=== PATIENT | female | born 1955 | race Caucasian/White ===

== ENCOUNTER 2020-01-05 13:34 | Observation (INO) | payer OTHER, MEDICARE ==
[~2020-01-05] VITALS: Ht 152.4 cm; Wt 84.2 kg
--- OUTSIDE RECORDS SUMMARY | 2020-01-05 13:37 | XMS REPORT ---
[facility] Address Unknown Phone Unavailable Care Team Providers Care Birth Attendant Name Role Phone KATI NASH Unavailable Unavailable Problems This patient has no known problems. Allergies, Adverse Reactions, Alerts This patient has no known allergies or adverse reactions. Medications This patient has no known medications. Results Test Description Test Time Test Comments Text Results Atomic Results Result Comments CT, BRAIN, WITHOUT / WITH IV CONTRAST 2019-01-18 12:31:[address], BRAIN, WITHOUT / WITH IV CONTRAST HISTORY: Fall, right head pain COMPARISON: None. TECHNIQUE: CT of the head was performed before and after the administration of intravenous contrast. Coronal/sagittal reformations were created. One or more of the following dose reduction techniques were used: Automated exposure control, adjustment of the mA and/or kV according to patient size, and/or utilization of iterative reconstruction technique. 100 mL of Isovue-300 were administered. DISCUSSION: Scalp/Skull: There is a small right frontal scalp hematoma. No calvarial fracture is seen.Brain sulci: Mildly prominent.Ventricles: Compensatory dilatation.Extra-axial spaces: Focal prominence of the subarachnoid space along the left temporal pole, measuring up to 3.4 cm in transverse dimension, is likely due to an arachnoid cyst; there is mild local mass effect. No additional masses or fluid collections. Mild carotid siphon calcifications are present. Parenchyma: Mild periventricular white matter hypodensities are likely chronic microvascular ischemic changes.No enhancing abnormalities.Otherwise, no masses, hemorrhage, or large vascular territory acute infarct. Dural sinuses: No abnormal densities.Sellar/Suprasellar region: Empty sella is present.Skull base: Intact.Incidental findings: There are mild degenerative changes in the bilateral temporomandibular and atlantoaxial joints. IMPRESSION:1.Small right frontal scalp hematoma. No calvarial fracture.2.No acute intracranial abnormalities.3.Mild generalized cerebral volume loss. Mild supratentorial chronic microvascular ischemic change.4.Incidental 3.4 cm left middle cranial fossa arachnoid cyst. Signed: Idris Braneport Verified Date/Time: 01/18/2019 12:31:58 Reading Location: [facility] Reading Room [address] [place] [address] -CREATININE 2019-01-18 11:32:00 POC-CREATININE (EZRA) (test fkgg=6222) 1.0 mg/dL 0.6-1.[address] [facility] [address] [facility] [address] POC-EGFR (BEAKER) (test jkkk=6379) mL/min/1.73M2 Insufficient clinical data to calculate estimated GFR
--- OUTSIDE RECORDS SUMMARY | 2020-01-05 13:37 | XMS REPORT | Summary of Care ---
Author Author [facility] Organization [facility] Address Unknown Phone Unavailable Care Team Providers Care Head Start Teacher Name Role Phone Chiqui Holt MD PCP Katia Diane MA 49 Unavailable Reason for Visit * Reason Comments Skin Lesion left hand * Consult, Test & Treat (Routine) Referred By Contact Referred To Contact Status Reason Specialty Diagnoses / Procedures Chiqui Holt MD [address] [facility] [address] [place] [address] Dermatology [address] [facility] [address] [place] [address] Authorization Consult, Test, and Dermatology Diagnoses Not Needed Treat Skin lesion P rocedures [place] OFFICE OUTPATIENT NEW 30 MINUTES Encounter Details Care Team Description Date Type Department Mira Robles MD [address] [facility] [address] [place] [address] [phone] Skin Lesion (left hand ) 12/27/2019 Office Visit [facility] Dermatology [address] [place] [address] [address] [place] [address] Allergies Comments Active Allergy Reactions Severity Noted Date Ativan 10/05/2009 Levaquin 10/05/2009 Tetanus Toxoid 10/05/2009 documented as of this encounter (statuses as of 12/27/2019) Medications End Date Status Medication Sig Dispensed Refills Start Date Active buPROPion (WELLBUTRIN) Take 450 mg 0 150 MG XL tablet by mouth 1 every morning. Active VIIBRYD 40 MG TABS 0 8 Active LATUDA 120 MG TABS 0 8 Active Na Sulfate-K Sulfate-Mg Take as 354 mL 1 Sulf (SUPREP BOWEL PREP directed 8 KIT) 17.5-3.13-1.6 GM/180ML SOLNIndications: Screen for colon cancer Active omeprazole (PRILOSEC) 20 Take 1 Cap by 30 Cap 11 MG capsuleIndications: mouth daily. 9 Esophagitis Active Na Sulfate-K Sulfate-Mg Take as 354 mL 1 Sulf (SUPREP BOWEL PREP directed 9 KIT) 17.5-3.13-1.6 GM/177ML SOLNIndications: Screen for colon cancer Active folic acid (FOLVITE) 1 MG TAKE 1 TABLET 90 Tab 0 tabletIndications: Folate BY MOUTH 0 deficiency DAILY Active methylphenidate (RITALIN) Take 20 mg by 0 20 MG tablet mouth two times daily. Active Melatonin 1 MG TABS Take by 0 mouth. 12/27/2019 Discontinued (*Therapy completed) aripiprazole (ABILIFY) 15 Take 15 mg by 0 MG tablet mouth daily. 12/27/2019 Discontinued (*Therapy completed) estradiol (ESTRACE) 0.1 Place 2 g 0 MG/GM vaginal cream vaginally daily. 12/27/2019 Discontinued (*Therapy completed) ferrous sulfate 325 (65 Take 1 Tab by 180 Tab 3 Fe) MG tabletIndications: mouth daily. 8 Other iron deficiency anemia 12/27/2019 Discontinued (*Therapy completed) VESICARE 10 MG TAKE 1 TABLET 90 Tab 0 tabletIndications: Urge BY MOUTH 9 incontinence DAILY 12/27/2019 Discontinued (*Therapy completed) Cholecalciferol (VITAMIN Take 1 Each 90 Cap 3 D3) 50 MCG (2000 UT) by mouth 9 CAPSIndications: Vitamin daily. D deficiency 12/27/2019 Discontinued (*Therapy completed) omeprazole (PRILOSEC) 20 TAKE 1 30 Cap 0 MG capsuleIndications: CAPSULE BY 9 Esophagitis MOUTH DAILY 12/27/2019 Discontinued (*Therapy completed) fluticasone (FLONASE) 50 1 Jackson by 1 Bottle 2 MCG/ACT nasal Each Nostril 9 sprayIndications: route daily. Non-seasonal allergic rhinitis, unspecified trigger 12/27/2019 Discontinued (*Therapy completed) Levocetirizine Take 1 Each 30 Each 3 Dihydrochloride (XYZAL) 5 by mouth 9 MG TABSIndications: daily. Non-seasonal allergic rhinitis, unspecified trigger 12/27/2019 Discontinued (*Therapy completed) azithromycin (ZITHROMAX) Take as 6 Tab 0 250 MG tabletIndications: directed on 9 Non-seasonal allergic package rhinitis, unspecified labeling. trigger Two pills by mouth for the first day and then 1 pill daily until done. 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 Q.8 hours as needed Check MRI of L-spine due to theseverity of solange pain Will write a letter with all lab results to patient when labs become available HEMATURIA 07/17/2008 INCONTINENCE, MIXED, URGE/STRESS 12/12/2007 OSTEOARTHROSIS, GENERALIZED, MULTIPLE SITES 04/26/2006 DEPRESSION ANEMIA G E R D documented as of this encounter (statuses as of 12/27/2019) Resolved Problems Problem Noted Date Resolved Date Screening for lipoid disorders 12/12/2007 01/11/2018 Screening for osteoporosis 12/12/2007 01/11/2018 ANSERINE BURSITIS 04/26/2006 01/11/2018 documented as of this encounter (statuses as of 12/27/2019) Immunizations Name Administration Dates Next Due Influenza (whole) 08/10/2016, 09/02/2015, 07/21/2014, 08/20/2013 Influenza Hd 08/20/2019, 08/09/2018 Influenza Quad-PF 08/16/2017 Pneumococcal 13-valent 11/05/2019 Conjugate Vaccine Pneumococcal Conjugate 10/12/2015 Pneumococcal 09/05/2018 Polysaccharide Tetanus 01/18/2013 documented as of this encounter Social History Date Tobacco Use Types Packs/Day Years Used Quit: 11/20/1984 Former Smoker 1 10 Smokeless Tobacco: Never Used Comments: PFTS 1 yr after were normal Drinks/Week oz/Week Comments Alcohol Use Alcoholic Drinks/day: no No Sex Assigned at Date Recorded Not on file Industry Job Start Date Occupation Not on file Not on file Not on file Travel End Travel History Travel Start No recent travel history available. documented as of this encounter Last Filed Vital Signs Reading Time Taken Comments Vital Sign 138/82 12/27/2019 8:35 AM APPRENTICE/LINEMAN Blood Pressure 63 12/27/2019 8:35 AM APPRENTICE/LINEMAN Pulse - - Temperature - - Respiratory Rate - - Oxygen Saturation - - Inhaled Oxygen Concentration 81.6 kg (180 lb) 12/27/2019 8:35 AM APPRENTICE/LINEMAN Weight 152.4 cm (5') 12/27/2019 8:35 AM APPRENTICE/LINEMAN Height 35.15 12/27/2019 8:35 AM APPRENTICE/LINEMAN Body Mass Index documented in this encounter Progress Notes * Mira Robles MD - 12/27/2019 9:00 AM APPRENTICE/LINEMAN Chief Complaint Patient presents with Skin Lesion left hand 64 y.o. woman here for full body skin check to see if any worrisome lesions on e xam. Wonders what various persistent lesions are on trunk and extremities. Incre asing in number over time. No prior treatment. Not itchy, painful, or bleeding. PMH: BCC face s/p surgery at age 22 FMH: adopted ROS: No other changing skin lesions or rashes. No fever, chills, nausea/vomiting . The patient's intake sheet was reviewed today, with information pertaining to pa st medical history, family medical history, social history, allergies, and medic ations, reviewed. The intake sheets are by protocol scanned into the system afte r the clinic visit. Physical Exam Gen: NAD, well-developed well-nourished, A&O, normal mood and affect Skin (head and face, neck, chest, abdomen, genitalia/groin/buttocks, back, right /left arms/forearms/hands, right/left thighs/legs/feet) significant findings---- A) L dorsal hand with scaly pink plaque 1. Scaly erythematous macule R cheek 2. Erythematous stuck-on papule L neck 3. Scattered brown macules and papules on face, trunk, and extremities with no w orrisome features 4. Stuck on papules and plaques on face, trunk, and extremities with no worrisom e features 5. Red papules on trunk and extremities Patient declined exam elsewhere Rest of skin exam clear with no worrisome lesions A/P A) r/o SCC --Skin biopsy was recommended for further evaluation. Risks, including pain, ble eding, scarring, infection, damage to underlying structures, recurrence, and nee d for additional procedures were discussed. Patient provided informed written co nsent. Time-out was performed to confirm the correct patient, procedure, and sit e. Biopsy site was wiped with alcohol and anesthetized with lidocaine with epine phrine. A tangential (shave) biopsy to remove epidermal and partial dermal tissu e was performed on the L dorsal hand for H&E. Hemostasis was achieved using electrodesiccation. Dressing was applied. Wound care instructions were discussed with the patient and written instructions were provided. The patient tolerated the procedure well. The patient will be notified of the pathology results. 1. Actinic keratosis --Discussed with patient that actinic keratoses are pre-cancerous skin lesions, a certain small percentage of which may progress to non-melanoma skin cancers --LN2 x 1 after verbal consent; SE pain, erythema, swelling, blistering, recurre nce, and hypopigmentation discussed 2. ISK --LN2 x 1 after verbal consent; risks discussed, including pain, erythema, swell ing, blistering, recurrence, need for additional treatment, and dyspigmentation 3. Benign nevi and solar lentigines --Sun protection discussed, including sun protective clothing and broad-spectrum SPF 30+ sunscreen use --Concerning signs of skin cancer discussed, including asymmetry, border irregul arity, color variegation, diameter >6mm, and evolution 4. Seborrheic keratoses --Reassured 5. Obregon angiomas --Reassured 6. H/o NMSC --No evidence of recurrence today --Sun protection discussed, including sun protective clothing and broad-spectrum SPF 30+ sunscreen use --Recommended q12 month skin checks, or sooner for any new or worrisome changes to existing lesions Mira Robles MD [employer] Department of Dermatology [facility] ENTICE/LINEMAN documented in this encounter Plan of Treatment Order Schedule Name Type Priority Associated Diagnoses Ordered: 12/27/2019 [place] TANGENTIAL BIOPSY SKIN [place] Charge Routine Neoplasm of uncertain SINGLE LESION behavior of skin Ordered: 12/27/2019 [place] DESTRUC PREMALIGNANT, [place] Charge Routine Actinic keratoses FIRST LESION(52060) Ordered: 12/27/2019 [place] DESTRUCTION BENIGN [place] Charge Routine Seborrheic keratoses, LESIONS UP TO 14(64142) inflamed Health Maintenance Due Date Last Done Comments MAMMOGRAM ANNUAL 10/12/2017 10/12/2016 FALL SCREEN 2018 OSTEOPOROSIS SCREENING 2018 05/14/2014, 11/30/2011, 12/14/2007 BMI FOLLOW UP PLAN 01/11/2019 01/11/2018 COLON CANCER SCREENIN10/26/2020 10/26/2010 (Previously completed) COLONOSCOPY TETANUS SHOT (ADULT) 01/18/2023 01/18/2013 HEPATITIS C SCREENING Completed 11/06/2017 PNEUMOVAX >=65 (PPSV23) Completed 09/05/2018, 09/05/2018 FLU VACCINE > 6 MONTHS Completed 08/20/2019, 08/16/2018, 08/09/2018, Additional history exists PREVNAR >=65 (PCV13) Completed 11/05/2019, 10/12/2015 documented as of this encounter Results Not on filedocumented in this encounter Visit Diagnoses Diagnosis Neoplasm of uncertain behavior of skin - Primary Actinic keratoses Actinic keratosis Seborrheic keratoses, inflamed Multiple benign melanocytic nevi Lentigines Other dyschromia Obregon angioma Nevus, non-neoplastic Keratosis seborrheica Other seborrheic keratosis History of skin cancer Personal history of other malignant neoplasm of skin documented in this encounter Insurance Type Payer Benefit Subscriber ID Effective Phone Address Plan / Dates Group PPO [facility] [employer] xxxxxxxxx 2015- [address] PPO - [place] Present [id number] [place] [address] documented as of this encounter Advance Directives For more information, please contact: [phone] Patient Mortgage Loan Officer Explanation Type Date Recorded Advance Directives and Living Will Power of Dental Surgeon
[2020-01-05] MEDS ORDERED: SODIUM CHLORIDE 0.9% 1000ML 1,000 ML IV SCH (14:30)
[2020-01-05] MEDS ORDERED: SODIUM CHLORIDE 0.9% 1000ML 1,000 ML ONE (14:48)
--- NOTE | 2020-01-05 16:23 | Diagnostic Imaging Report ---
EXAM: CT Abdomen and Pelvis WITH contrast INDICATION: Severe abdominal pain with bloody stools. COMPARISON: None. TECHNIQUE: Abdomen and pelvis were scanned utilizing a multidetector helical scanner from the lung base to the pubic symphysis after administration of IV contrast. Coronal and sagittal reformations were obtained. Routine protocol was performed. Scan was performed when during portal venous phase. IV CONTRAST: 100 cc Isovue 300 ORAL CONTRAST: Oral hydration. RADIATION DOSE: Total DLP: 705.64 mGy*cm Estimated effective dose: (DLP x 0.015 x size factor) mSv COMPLICATIONS: None FINDINGS: LINES and TUBES: There is a gastric LAP-BAND in the proximal stomach distal to the esophagogastric junction with a connecting tube and subcutaneous port. LOWER THORAX: There is bibasilar atelectasis. Mild distention of the distal esophagus. HEPATOBILIARY: The liver is diffuse hypodense compared to the spleen, consistent with diffuse hepatic diffuse hepatic steatosis. No focal hepatic lesions. No biliary ductal dilation. GALLBLADDER: No radio-opaque stones or sludge. No wall thickening. SPLEEN: No splenomegaly. PANCREAS: No focal masses or ductal dilatation. ADRENALS: No adrenal nodules KIDNEYS/URETERS: Kidneys enhance symmetrically. No hydronephrosis. 1.43 cm cyst in the lateral upper pole of the left kidney. 1.0 cm cyst in the lateral interpolar region of the left kidney. 1.3 cm cyst in the lower pole of the left kidney. 1.0 cm nonobstructing calculus in the lower pole of the right kidney. 4 mm nonobstructing calculus in the lower interpolar region of the right kidney. GI TRACT: Moderate diffuse wall thickening of approximately 20 cm long segment of the descending colon associated with surrounding fat stranding and trace fluid. The rectum is decompressed. No abnormal distention suggest obstruction. Scattered descending and sigmoid colon diverticula. Appendix is not visualized. No inflammatory changes in the right lower quadrant. PELVIC ORGANS/BLADDER: Unremarkable. LYMPH NODES: No lymphadenopathy. VESSELS: There is mild atherosclerotic disease in the aorta and major arterial branches. PERITONEUM / RETROPERITONEUM: No free air or fluid. BONES: Grade 1 anterolisthesis of L4 in relation to L5. Mild degenerative changes of the thoracolumbar spine. SOFT TISSUES: Unremarkable. IMPRESSION: 1. Inflammatory changes of the descending colon with differential diagnosis includes infectious and inflammatory colitis. Ischemic colitis is within the differential given distribution involving left hemicolon 2. Nonobstructing right renal calculi. Signed by: Dr. Martha Atwood M.D. on 01/05/2020 4:20 PM
[2020-01-05] MEDS ORDERED: CIPROFLOXACIN 400 MG/D5W 200ML 200 ML IV STA (17:45)
[2020-01-05] MEDS ORDERED: FAMOTIDINE 20 MG/2 ML VIAL IV STA (17:50)
[2020-01-05] MEDS ORDERED: SODIUM CHLORIDE FLUSH 10 ML SYR INJ PRN (18:00)
--- NOTE | 2020-01-05 18:10 | NUR ---
[facility] contacted per RN request for transport. ETA 30 min
[2020-01-05] MEDS: CIPROFLOXACIN 400 MG/D5W 200ML 200 ML IV SCH (18:22)
[2020-01-05] MEDS ORDERED: METRONIDAZOLE 500MG/NS 100ML 100 ML IV ONE (18:30)
[2020-01-05 21:00] VITALS: BP 140/96
[2020-01-05] MEDS: METRONIDAZOLE 500MG/NS 100ML 100 ML IV SCH (22:30)
[2020-01-05] MEDS: SODIUM CHLORIDE 0.9% 1000ML 1,000 ML IV SCH (22:30)
[2020-01-05 22:48] LABS: HEMATOCRIT 35.4 % (34.2-44.1)
[2020-01-05 22:56] VITALS: BP 140/96
[2020-01-05] MEDS ORDERED: LATUDA120 MG PO (23:15)
[2020-01-05] MEDS ORDERED: METHYLPHENIDATE10 MG PO (23:15)
[2020-01-05] MEDS ORDERED: TRAVATAN Z5 ML OU (23:15)
[2020-01-05] MEDS ORDERED: BUPROPION XL150 MG PO (23:15)
[2020-01-05] MEDS ORDERED: LEVOCETIRIZINE PO (23:15)
[2020-01-05] MEDS ORDERED: OMEPRAZOLE40 MG PO (23:15)
[2020-01-05] MEDS ORDERED: TIMOLOL MALEATE5 M3 OU (23:15)
[2020-01-05] MEDS ORDERED: SYSTANE NIGHTT3.5 GM OU (23:15)
[2020-01-05] MEDS ORDERED: folic acid PO (23:15)
[2020-01-05] MEDS ORDERED: VIIBRYD40 MG PO (23:15)
[2020-01-05] MEDS ORDERED: [UNRECOGNIZED DRUG - OTHER] PO (23:17)
[2020-01-06] VITALS (7 sets, daily range): BP systolic 104–138; BP diastolic 53–67
[2020-01-06] MEDS ORDERED: BISACODYL 5 MG TAB EC PO ONE ×3 (05:00→06:00)
[2020-01-06] MEDS: METRONIDAZOLE 500MG/NS 100ML 100 ML IV SCH ×3 (05:00→22:58)
[2020-01-06 06:11] LABS: BASOPHILS # (AUTO) 0.1 (0.0-0.1); BASOPHILS % 0.5 % (0.0-1.0); EOSINOPHILS # (AUTO) 0.2 (0.0-0.4); EOSINOPHILS % 1.5 % (0.0-6.0); HEMATOCRIT 35.3 % (34.2-44.1); HEMOGLOBIN 10.6 g/dL (12.0-16.0); LYMPHOCYTES # (AUTO) 2.4 (1.0-3.2); LYMPHOCYTES % 16.3 % (18.0-39.1); MEAN CORPUSCULAR HEMOGLOBIN 29.1 pg (28-32); MONOCYTES # (AUTO) 1.6 (0.2-0.8); MONOCYTES % 10.8 % (4.4-11.3); NEUTROPHILS # (AUTO) 10.2 (2.1-6.9); NEUTROPHILS % 70.5 % (38.7-80.0); PLATELET COUNT 226 x10e3/uL (140-360); RED BLOOD COUNT 3.64 x10e6/uL (3.6-5.1); RED CELL DISTRIBUTION WIDTH 14.3 % (11.7-14.4)
[2020-01-06] MEDS: CIPROFLOXACIN 400 MG/D5W 200ML 200 ML IV SCH ×2 (06:21→17:51)
[2020-01-06 06:34] LABS: ANION GAP 14.9 mmol/L (8-16); CALCIUM 8.9 mg/dL (8.4-10.2); CREATININE, SERUM 1.18 mg/dL (0.57-1.11); POTASSIUM 3.9 mmol/L (3.5-5.1)
--- NOTE | 2020-01-06 06:50 | NUR ---
RECEIVED BEDSIDE SHIFT REPORT FROM OFF GOING NURSE. PATIENT IS IN STABLE CONDITION, NO ACUTE DISTRESS NOTED. CALL LIGHT WITHIN REACH. BED IN THE LOWEST POSITION.
[2020-01-06] MEDS ORDERED: CITRATE OF MAGNESIA 300ML BOTTLE PO ONE ×2 (08:00→10:00)
[2020-01-06] MEDS ORDERED: HYDROCODONE/APAP 5MG-325MG TAB PO PRN (09:45)
[2020-01-06] MEDS ORDERED: ONDANSETRON HCL INJ 2MG/ML 2ML 2 MG/ML VIAL IV PRN (09:45)
[2020-01-06] MEDS ORDERED: ACETAMINOPHEN 325 MG TAB PO PRN (09:45)
[2020-01-06 14:54] LABS: HEMATOCRIT 35.5 % (34.2-44.1)
[2020-01-06] MEDS: METHYLPHENIDATE HCL 10 MG TAB PO SCH (15:30)
[2020-01-06] MEDS: SODIUM CHLORIDE 0.9% 1000ML 1,000 ML IV SCH ×2 (15:50→22:05)
--- NOTE | 2020-01-06 17:18 | History and Physical ---
CHIEF COMPLAINT: Abdominal pain and rectal bleeding. HISTORY OF PRESENT ILLNESS: This is a 64-year-old female with past medical history of depression and also ADHD adult onset presents to the ED freestanding ER with complaints of rectal bleeding. The patient reports that on Monday she had several bouts of diarrhea that started Monday evening. No associated nausea, vomiting, or any rectal bleeding at that time. Denies any fever during that time. Following day on 01/05/2020, she has several bouts of rectal bleeding. Denies any associated nausea or vomiting. She has never experienced anything like this before. No reports of any hemorrhoids in the past. Reports having a colonoscopy several years ago [facility], found to be negative. No family history of any count of inflammatory bowel disease. The patient is seen and evaluated at bedside on the medical floor. She is currently doing well with no other issues at this time. She is scheduled for a colonoscopy later this morning. REVIEW OF SYSTEMS: Pertinent positives: Rectal bleeding to perfuse diarrhea. Pertinent negative: Denies any chest pain, palpitation, nausea, vomiting, dysuria, hematuria, frequency, urgency, lightheadedness, dizziness, cough, congestion, fever, or any other complaints. The rest of 14-point review of systems are reviewed with the patient and are negative. ALLERGIES: TO TETANUS AND . PAST MEDICAL HISTORY: She has ADHD, adult onset. She has depression. PAST SURGICAL HISTORY: Reports none. FAMILY HISTORY: Hypertension and diabetes. SOCIAL HISTORY: No drugs. No alcohol. Does not smoke. Good social support. PHYSICAL EXAMINATION: VITAL SIGNS: Temperature is 99.2, pulse 84, respiratory rate 104/53, pulse ox 95% on room air. GENERAL: Not in acute distress, alert and oriented x3. Cooperative on examination. HEENT: Head is normocephalic, atraumatic. Eyes; pupils are equal, round, and reactive to light bilaterally. Extraocular movements intact bilaterally. Throat; no evidence of erythema or exudates in the posterior pharynx. Has poor dentition. NECK: Supple. Good range of motion. PULMONARY: Clear to auscultation bilaterally. No wheezing, no rales, no rhonchi, no crackle appreciated. CARDIOVASCULAR: Positive S1 and S2. No murmurs, rubs, or gallops appreciated. ABDOMEN: Soft, nondistended, and nontender to palpation. Bowel sounds present. MUSCULOSKELETAL: Strength is 5/5 throughout. No evidence of any muscle deficits on examination. No weakness appreciated. NEUROLOGIC: Cranial nerves II through XII grossly intact. No evidence of any neurological deficits on exam. SKIN: Intact. Warm to touch. Good cap refill. PSYCHIATRIC: Normal affect and mood. EXTREMITIES: No edema. Good range of motion throughout. LABORATORY DATA: White count is 13.4, hemoglobin 10.6, hematocrit 35, platelets of 226. Sodium 140, potassium 3.9, chloride 107, bicarb 22, anion gap is 14, BUN is 12, creatinine is 1.1, glucose 107, calcium is 8.9. Coagulation, PTT 36. IMAGING STUDIES: CT abdomen and pelvis, inflammatory changes of infectious or inflammatory colitis. Nonobstructive right renal calculi. IMPRESSION: 1. Abdominal pain with concerns of colitis on imaging studies. 2. History of depression and attention deficit hyperactivity disorder. 3. Leukocytosis, likely secondary to #1. PLAN: At this time, GI was consulted. She is scheduled for EGD this morning to evaluate her underlying inflammation and colitis as well as the rectal bleeding. Her hemoglobin is stable at this moment to 10.6. She will be n.p.o., IV fluids, pain control. She is also on IV antibiotics as well, which we will go ahead and continue. Restart all her home medications. Hold all anticoagulation, anti-platelet therapy. She is on pain control as well. I discussed plan of care with nursing staff and the patient at bedside. They all verbalized understanding. MD DORIS Pabon/MODL /[id number]
--- NOTE | 2020-01-06 17:55 | NUR ---
PATIENT OFF UNIT AT THIS TIME FOR PROCEDURE.
[2020-01-06] MEDS ORDERED: LIDOCAINE HCL 2% LOCAL INJ 5 ML SDV VIAL INJ ONE (18:02)
[2020-01-06] MEDS ORDERED: PROPOFOL IV EMULSION 10 MG/ML 50 ML VIAL ONE (18:02)
[2020-01-06] MEDS ORDERED: MIDAZOLAM HCL 2 MG/2 ML VIAL ONE (18:12)
[2020-01-06] MEDS ORDERED: FENTANYL CITRATE/PF 100MCG/2 ML INJ ONE (18:12)
--- NOTE | 2020-01-06 19:28 | NUR ---
Bedside shift report given to oncoming nurse. Patient is resting in bed, no acute distress noted. Call light within reach. Bed in the lowest position.
--- NOTE | 2020-01-06 19:30 | NUR ---
Patient received back to unit S/P colonoscopy to room 284. No issues or concerns noted. Call light within reach. Will continue to monitor closely.
[2020-01-06] MEDS ORDERED: MELATONIN PO SCH (21:00)
[2020-01-06] MEDS ORDERED: PANTOPRAZOLE SOD 40 MG TABEC PO SCH (21:00)
[2020-01-06] MEDS ORDERED: TRAVOPROST(OPTH) 2.5 ML BTL OP SCH (21:00)
[2020-01-06] MEDS ORDERED: EYE LUBRICANT OPTH OINT 3.5GM TUBE OP SCH (21:00)
[2020-01-06] MEDS ORDERED: LURASIDONE HCL 120 MG PO SCH (21:00)
[2020-01-06] MEDS ORDERED: HERBAL PO SCH (21:00)
[2020-01-06] MEDS ORDERED: [UNRECOGNIZED DRUG - OTHER] OU SCH (21:00)
[2020-01-06] MEDS ORDERED: TIMOLOL MALEATE 0.5% OPTH DRP 5 ML BTL OP SCH (21:00)
[2020-01-06] MEDS ORDERED: TIMOLOL MALEATE 0.25% OPTHLAMIC DROPS 5 ML OP SCH (21:00)
[2020-01-06] MEDS ORDERED: MINERAL OIL OU SCH (21:00)
--- NOTE | 2020-01-07 00:40 | Operative Report ---
DATE OF PROCEDURE: 01/06/2020 SURGEON: Evert Ryan MD PROCEDURE: Colonoscopy with polypectomy and biopsies. INDICATIONS FOR COLONOSCOPY: Bloody diarrhea. MEDICATIONS: The patient was done under MAC, please see anesthesiologist's note. PROCEDURE IN DETAIL: With the patient in left lateral decubitus position, a flexible fiberoptic Olympus, colonoscope was inserted into the rectum with ease and advanced all the way to the cecum. Mucosa overlying the cecum appeared to be within normal limits. Approximately 1 cm sessile polyp was noted in the proximal ascending colon that was removed per snare electrocautery and site was hemoclipped x1. The rest of the ascending transverse appeared to be within normal limits. The mid and distal descending colon and proximal sigmoid colon was ulcerated, compatible with ischemic colitis. Biopsies were obtained. The rest of the sigmoid and rectum appeared to be within normal limits. The scope was then retroflexed into the distal rectum and the area around the dentate line appeared to be within normal limits. The scope was then straightened out, it was subsequently withdrawn after securing an adequate stool specimen that was sent for the appropriate stool studies. The patient tolerated procedure well. IMPRESSION: 1. Approximately 1 cm sessile polyp, proximal ascending colon removed per snare electrocautery and site hemoclipped x1. 2. Diverticulosis. 3. Rule out ischemic colitis involving descending and proximal sigmoid colon. PLAN: Follow up histology. Initiate GI soft diet. The patient will need a followup colonoscopy in two months to re-evaluate and document healing. Evert Ryan MD [facility] /[id number] cc: Jessica Vanessa MD
[2020-01-07 01:08] VITALS: BP 98/54
[2020-01-07 05:14] VITALS: BP 108/56
[2020-01-07 05:27] LABS: BASOPHILS # (AUTO) 0.1 (0.0-0.1); BASOPHILS % 0.4 % (0.0-1.0); EOSINOPHILS # (AUTO) 0.4 (0.0-0.4); EOSINOPHILS % 3.4 % (0.0-6.0); HEMATOCRIT 33.5 % (34.2-44.1); HEMOGLOBIN 10.3 g/dL (12.0-16.0); LYMPHOCYTES # (AUTO) 1.7 (1.0-3.2); LYMPHOCYTES % 14.4 % (18.0-39.1); MEAN CORPUSCULAR HEMOGLOBIN 29.3 pg (28-32); MEAN CORPUSCULAR HGB CONC 30.7 g/dL (31-35); MEAN CORPUSCULAR VOLUME 95.4 fL (81-99); MONOCYTES # (AUTO) 1.3 (0.2-0.8); MONOCYTES % 10.8 % (4.4-11.3); NEUTROPHILS # (AUTO) 8.2 (2.1-6.9); NEUTROPHILS % 70.3 % (38.7-80.0); PLATELET COUNT 237 x10e3/uL (140-360); RED BLOOD COUNT 3.51 x10e6/uL (3.6-5.1)
[2020-01-07] MEDS: METRONIDAZOLE 500MG/NS 100ML 100 ML IV SCH (05:30)
[2020-01-07 05:44] LABS: ANION GAP 9.9 mmol/L (8-16); CALCIUM 9.1 mg/dL (8.4-10.2); CREATININE, SERUM 1.11 mg/dL (0.57-1.11); POTASSIUM 3.9 mmol/L (3.5-5.1)
[2020-01-07] MEDS: CIPROFLOXACIN 400 MG/D5W 200ML 200 ML IV SCH (06:24)
--- NOTE | 2020-01-07 06:50 | NUR ---
RECEIVED BEDSIDE SHIFT REPORT FROM OFF GOING NURSE. PATIENT IS RESTING IN BED, NO ACUTE DISTRESS NOTED. CALL LIGHT WITHIN REACH. BED IN THE LOWEST POSITION.
[2020-01-07] MEDS: METHYLPHENIDATE HCL 10 MG TAB PO SCH (07:00)
--- NOTE | 2020-01-07 07:00 | NUR ---
Bedside report and walking rounds completed with oncoming nurse. Patient in bed resting. Call light within reach. No issues or concerns noted.
[2020-01-07 08:00] VITALS: BP 111/59
[2020-01-07 08:47] VITALS: BP 111/59
[2020-01-07] MEDS ORDERED: VILAZODONE HYDROCHLORIDE 40 MG PO SCH (09:00)
[2020-01-07] MEDS ORDERED: LORATADINE 10 MG TAB PO SCH (09:00)
[2020-01-07] MEDS ORDERED: FOLIC ACID 1 MG TAB PO SCH (09:00)
[2020-01-07] MEDS ORDERED: BUPROPION HCL 150 MG TABCR PO SCH (09:00)
[2020-01-07] MEDS ORDERED: LEVOCETIRIZINE 5 MG PO SCH (09:00)
[2020-01-07] MEDS ORDERED: TIMOLOL MALEATE OU SCH (09:00)
--- NOTE | 2020-01-07 09:16 | NUR ---
DR. ELIAS CLEARED PATIENT FOR DC FROM GI STAND POINT.
--- NOTE | 2020-01-07 11:14 | NUR ---
RECEIVED DC ORDER FROM DR. CORREA, PATIENT IS IN STABLE CONDITION. IV LINE TO LEFT WRIST DCD WITH TIP INTACT, PRESSURE APPLIED TO SITE, NO BLEEDING NOTED. DISCHARGE TEACHING PROVIDED TO PATIENT, SHE VERBALIZED UNDERSTANDING. DISCHARGE FOLDER WITH PAPERWORK ON HAND, NO NEW PRESCRIPTIONS. PATIENT ACCOMPANIED TO PRIVATE AUTO VIA WHEELCHAIR BY STAFF. Addendum: 01/07/20 at 1131 by SAMI ARREOLA RN PATIENT ACCOMPANIED TO PRIVATE AUTO BY STAFF, REFUSED WHEELCHAIR, REQUESTED TO WALK.
--- NOTE | 2020-01-08 01:20 | Discharge Summary ---
FINAL DISCHARGE DIAGNOSES: 1. Rule out ischemic colitis in the descending and proximal sigmoid colon. 2. Diverticulosis. 3. 1 cm cecal polyp, status post snare. 4. Rectal bleeding, secondary to possible underlying ischemic colitis. CONSULTANTS: GI. PHYSICAL EXAMINATION: VITAL SIGNS: Temperature is 97.5, pulse 93, respiratory rate 19, blood pressure 111/59, pulse ox 94% on room air. LABORATORY FINDINGS: Show white count is 11.6, hemoglobin 10.3, hematocrit 33, platelets of 237. Coagulation; PT 36. Chemistry, sodium 142, potassium 3.9, chloride 113, bicarb 20, anion gap is 9.9. BUN 9, creatinine is 1.1, glucose 113, calcium is 9.1. C. difficile toxin was negative. MICROBIOLOGY: Several stool samples are pending. Will need outpatient followup GI. IMAGING STUDIES: CT abdomen and pelvis shows inflammatory changes of the descending colon concerning for underlying inflammatory colitis. Non-obstructive right renal calculi. Ischemic colitis is a possibility. HOSPITAL COURSE: This is a 64-year-old female, who came into the emergency room with complaints of underlying rectal bleeding, abdominal pain, and diarrhea. The patient was admitted and GI was consulted. The patient underwent status post colonoscopy performed on 11/06/[address] Ryan which impression shows approximately 1 cm cecal polyp, proximal ascending colon removed per snare electrocautery and site hemoclip x1; diverticulosis, rule out ischemic colitis in the descending and proximal sigmoid colon, status post biopsies performed. The patient did well post procedure with no complaints. It was felt that the likely etiology of her underlying rectal bleeding is secondary to ischemic colitis. I spoke with GI at this time and they cleared the patient for discharge to home with a followup in the next 1 to 2 weeks in this office for final biopsy results. The patient does not need antibiotics upon discharge. On the day of discharge, the patient was doing well, tolerating diet well, had no more evidence of diarrhea or any rectal bleeding. She was cleared for discharge by GI. On the day of discharge, vital signs were stable, labs reviewed and stable. The patient was seen, evaluated, and examined thoroughly on the day of discharge. No other complaints. The patient verbalized understanding and agreed with plan of care. A followup appointment as an outpatient with the primary care physician in 1 week and GI specialist in 1 to 2 weeks for final pathology results. MEDICATIONS: See med reconciliation form. DISPOSITION: To home. CONDITION: Stable. DIET: Heart healthy. In the event of any worsening symptoms, the patient was advised to come back to the ED for further evaluation. Discharge summary took greater than 35 minutes. MD DORIS Pabon/[facility]Any /[id number]
== END 2020-01-07 11:26 | disposition home or self-care (01) ==
LOC: FSED 13:34 → ERHOLD 17:59 → MED/SURG3 19:25
PROVIDERS: ADMIT Internal Medicine; ATTEND Internal Medicine
DX: K57.90 Diverticulosis of intestine, part unspecified, without perforation or abscess without bleeding (principal); K63.5 Polyp of colon; K21.9 Gastro-esophageal reflux disease without esophagitis; E66.9 Obesity, unspecified; Z68.36 Body mass index [BMI] 36.0-36.9, adult
CPT/HCPCS: 36415 ×3; 45382; 45385; 74177; 80048 ×3; 80076; 81003; 82270; 83993; 85014 ×2; 85018 ×2; 85025 ×3; 85730; 86850; 86900; 87045; 87177; 87328; 87493; 88305; 99284; G0378 ×3; J0744 ×2; J2001; J2250; J2704; J3010; J7030 ×2; 45378; 45380